=== PATIENT | male | born 2000 | race Caucasian/White ===

== ENCOUNTER 2020-07-05 00:16 | Emergency (ER) | payer OTHER ==
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
--- NOTE | 2020-07-05 09:25 | CT ---
[id number] CT/CT Head WO IV EXAM: CT Head WO IV CLINICAL DATA: TRAUMA COMPARISON: NO PREVIOUS SIMILAR EXAM IS AVAILABLE FOR COMPARISON. FINDINGS: Left maxillary and orbital fractures are seen Consider CT facial bones There is no mass or mass effect. There is no hemorrhage or hydrocephalus. There are no extra-axial fluid collections. There are no sites of abnormal attenuation. IMPRESSION: NO PLAIN CT EVIDENCE OF ACUTE INTRACRANIAL PROCESS. FACIAL FRACTURES Brett Morel MD 07/05/20 0916 Thank you for allowing us to participate in the care of your patient.
== END 2020-07-05 02:20 | disposition home or self-care (01) ==
LOC: VM.ED 00:16
DX: S02.85XA Fracture of orbit, unspecified, initial encounter for closed fracture (principal); S02.40DA Maxillary fracture, left side, initial encounter for closed fracture; S00.03XA Contusion of scalp, initial encounter; S00.432A Contusion of left ear, initial encounter; W17.89XA Other fall from one level to another, initial encounter
CPT/HCPCS: 70450; 99283; 99284-25

== ENCOUNTER 2024-03-14 12:19 | Observation (INO) | payer OTHER, SELFPAY ==
[2024-03-14] MEDS ORDERED: Sodium Chloride 0.9% 10 ML Syringe FLUSH PRN ×2 (12:36→15:44)
[2024-03-14 12:47] LABS: BASOPHILS PERCENT AUTO 0.3 % (0.2-1.2); EOSINOPHILS ABSOLUTE AUTO 0.2 x10^3/uL (0.0-0.5); HEMATOCRIT 44.5 % (40.0-52.0); HEMOGLOBIN 16.9 g/dL (14.0-18.0); IMMATURE GRAN ABSOLUTE AUTO 0.06 x10^3/uL (0.00-0.07); LYMPHOCYTES ABSOLUTE AUTO 3.2 x10^3/uL (1.0-4.8); LYMPHOCYTES PERCENT AUTO 41.8 % (25.0-50.0); MEAN CORPUSCULAR HEMOGLOBIN 29.8 pg (26.0-32.0); MEAN CORPUSCULAR VOLUME 78.5 fL (78.0-93.0); MONOCYTES ABSOLUTE AUTO 0.5 x10^3/uL (0.0-0.8); MONOCYTES PERCENT AUTO 6.6 % (2.0-11.0); NEUTROPHILS ABSOLUTE AUTO 3.7 x10^3/uL (1.8-7.7); NEUTROPHILS PERCENT AUTO 48.5 % (50.0-80.0); PLATELET COUNT,PLT 276 x10^3/uL (130-400); RED BLOOD CELL COUNT 5.67 x10^6/uL (4.5-6.0); WHITE BLOOD CELL COUNT,WBC 7.6 x10^3/uL (4.0-10.0)
[2024-03-14 13:15] LABS: ALBUMIN 4.6 g/dL (3.4-5.0); ANION GAP 19.8 mmol/L (5-15); CARBON DIOXIDE,CO2 22 mmol/L (21-32); CHLORIDE,CL 104 mmol/L (98-107); ESTIMATED GFR 108 mL/min (>=60); SODIUM,NA 142 mmol/L (136-145)
[2024-03-14 13:16] LABS: ALKALINE PHOSPHATASE 67 U/L (46-116); CALCIUM 8.9 mg/dL (8.5-10.1); GLUCOSE RANDOM 184 mg/dL (70-99); POTASSIUM,K 3.8 mmol/L (3.5-5.1)
[2024-03-14 13:29] LABS: BLOOD UREA NITROGEN,BUN 26 mg/dL (7-18); ETHANOL BLOOD MEDICAL < 3 mg/dL (0-3)
[2024-03-14 13:39] LABS: A/G RATIO 1.31; PROTEIN TOTAL,TP 8.1 g/dL (6.4-8.2)
[2024-03-14 13:56] LABS: ALANINE AMINOTRANSFERASE,ALT 94 U/L (16-63)
[2024-03-14 14:06] LABS: ASPARTATE AMNIOTRANSFERASE,AST 54 U/L (15-37)
[2024-03-14] MEDS: Sodium Chloride 0.9% 1,000 ML IV ONE (14:10)
[2024-03-14] MEDS: fentaNYL 100 MCG/2 ML SDV IVPUSH ONE (14:10)
[2024-03-14] MEDS: Iopamidol 612 MG/ML 100 ML Bottle IVPUSH ONE (14:12)
[2024-03-14 15:25] LABS: APPEARANCE,URINE CLEAR (CLEAR); BILIRUBIN,URINE NEGATIVE (NEGATIVE); COLOR,URINE YELLOW (YELLOW); GLUCOSE,URINE NEGATIVE (NEGATIVE); KETONES,URINE NEGATIVE (NEGATIVE); LEUKOCYTE ESTERASE,URINE NEGATIVE (NEGATIVE); NITRITE,URINE NEGATIVE (NEGATIVE); OCCULT BLOOD,URINE NEGATIVE (NEGATIVE); PROTEIN,URINE NEGATIVE (NEGATIVE); UROBILINOGEN,URINE 0.2 EU/dL (0.2)
[2024-03-14] MEDS: Ketorolac 30 MG/ML SDV IVPUSH ONE (15:40)
[2024-03-14] MEDS ORDERED: Ondansetron 4 MG Tab.DIS PO PRN (15:44)
[2024-03-14] MEDS: oxyCODONE 5 MG Tab PO PRN (17:19)
[2024-03-14] MEDS: Bacitracin Oint 28.35 GM Tube TOP SCH (20:28)
[2024-03-14] MEDS: Acetaminophen 325 MG Tab PO PRN (20:38)
[2024-03-14] MEDS: Ketorolac 30 MG/ML SDV IVPUSH PRN (23:06)
[2024-03-15 07:03] LABS: BASOPHILS PERCENT AUTO 0.1 % (0.2-1.2); EOSINOPHILS ABSOLUTE AUTO 0.2 x10^3/uL (0.0-0.5); EOSINOPHILS PERCENT AUTO 1.7 % (0.0-4.0); HEMATOCRIT 41.6 % (40.0-52.0); HEMOGLOBIN 15.2 g/dL (14.0-18.0); IMMATURE GRAN ABSOLUTE AUTO 0.02 x10^3/uL (0.00-0.07); LYMPHOCYTES ABSOLUTE AUTO 2.1 x10^3/uL (1.0-4.8); LYMPHOCYTES PERCENT AUTO 23.2 % (25.0-50.0); MEAN CORPUSCULAR HEMOGLOBIN 29.1 pg (26.0-32.0); MEAN CORPUSCULAR HGB CONC 36.5 g/dL (32.0-36.0); MEAN CORPUSCULAR VOLUME 79.5 fL (78.0-93.0); MONOCYTES ABSOLUTE AUTO 0.8 x10^3/uL (0.0-0.8); MONOCYTES PERCENT AUTO 8.7 % (2.0-11.0); NEUTROPHILS ABSOLUTE AUTO 6.1 x10^3/uL (1.8-7.7); NEUTROPHILS PERCENT AUTO 66.1 % (50.0-80.0); PLATELET COUNT,PLT 220 x10^3/uL (130-400); RED BLOOD CELL COUNT 5.23 x10^6/uL (4.5-6.0); WHITE BLOOD CELL COUNT,WBC 9.2 x10^3/uL (4.0-10.0)
[2024-03-15 07:25] LABS: A/G RATIO 1.18; ALBUMIN 3.9 g/dL (3.4-5.0); BILIRUBIN TOTAL 1.2 mg/dL (0.2-1.0); CALCIUM 9.1 mg/dL (8.5-10.1); CREATININE 0.9 mg/dL (0.70-1.30); EST CRCL DRUG DOSING (CG) 148.42 mL/min; POTASSIUM,K 3.8 mmol/L (3.5-5.1); PROTEIN TOTAL,TP 7.2 g/dL (6.4-8.2)
[2024-03-15 07:26] LABS: ANION GAP 15.8 mmol/L (5-15)
== END 2024-03-15 14:06 | disposition home or self-care (01) ==
LOC: VM.ED 12:19 → VM.MS 15:30
PROVIDERS: ADMIT Nurse Practitioner Family; ATTEND Nurse Practitioner Family
DX: S09.93XA Unspecified injury of face, initial encounter (principal); I10 Essential (primary) hypertension; Z79.899 Other long term (current) drug therapy; X58.XXXA Exposure to other specified factors, initial encounter
CPT/HCPCS: 36415; 70450; 71260; 72125; 74177; 80053; 80307; 81003; 85025; 99223; 99239; A9270; J1885; J3010; J7030; Q9967; 96361; 96374; 96375; 96376; 99285-25; G0378